=== PATIENT | female | born 1990 | race Two or more races ===

== ENCOUNTER 2021-02-01 09:32 | Emergency (ER) | payer BC, OTHER ==
[~2021-02-01] VITALS: Ht 157.5 cm; Wt 59.0 kg
[2021-02-01 11:09] VITALS: BP 111/70
== END 2021-02-01 12:20 | disposition home or self-care (01) ==
LOC: ER 09:32
DX: R07.0 Pain in throat (principal); J45.909 Unspecified asthma, uncomplicated
CPT/HCPCS: 70360